=== PATIENT | male | born 1995 | race Hispanic/Latino ===

== ENCOUNTER 2017-04-28 08:18 | Emergency (ER) | payer OTHER ==
[2017-04-28] MEDS: IBUPROFEN 800 MG TAB PO (09:18)
== END 2017-04-28 09:23 | disposition home or self-care (01) ==
LOC: M ED 08:18
DX: S83.92XA Sprain of unspecified site of left knee, initial encounter (principal); X50.1XXA Overexertion from prolonged static or awkward postures, initial encounter; Y92.9 Unspecified place or not applicable; Y93.61 Activity, american tackle football
CPT/HCPCS: 73564